=== PATIENT | male | born 1970 | race Caucasian/White ===

== ENCOUNTER 2024-08-05 10:17 | Inpatient (IN) | payer OTHER, SELFPAY ==
--- NOTE | ~2024-08-05 | XR_ITS ---
CLINICAL HISTORY: fever, cough Single view of the chest. Findings: Heart size is upper limits of normal. There is no consolidation. No pleural effusions are seen. Median sternotomy. There is mild elevation of the right hemidiaphragm. Impression: No consolidation. This document has been electronically signed by: Dmitri Hazel MD on 08/07/2024 17:15:01
[2024-08-05 10:23] VITALS: BP 167/92; PULSE 111; RESP 18; TEMP 36.6; O2SAT 100; BMI 32.6
[2024-08-05 10:54] LABS: MANUAL DIFF FLAG NO
--- NOTE | 2024-08-05 10:58 | ED_ITS ---
HPI - GI Bleed General Chief complaint: GI Bleed Stated complaint: GI bleed on coumadin Time Seen by Provider: 08/05/24 10:57 Source: patient Mode of arrival: ambulatory Limitations: no limitations History of Present Illness ED Provider: Nicanor Snell DO HPI Narrative: 54-year-old male with past medical history of aortic valve replacement in 2012 currently on warfarin and alcohol use regularly described as approximately 1-2 bottles of wine daily with no history of withdrawal seizures or delirium tremens presents to the emergency department for 3 days of black tarry stools. Patient states he has had upper GI bleed x2 since he has been on warfarin, 1 episode requiring cauterization by Gastroenterology at [facility] in 2014 due to a duodenal ulcer. He states he has not had severe withdrawals requiring admission but does feel he is withdrawing now as his last drink was last night. He held his warfarin starting 2 days ago secondary to the bleeding. The episodes have been occurring persistently, proximally 6 or 7 per day. He denies bright red blood per rectum or any other areas of bleeding. She denies chest pain. He does feel mildly short of breath and weak. He denies NSAID use. Patient reports that he does have a history of AV malformation. He denies variceal bleed history. Related Data Allergies Allergy/AdvReac Type Severity Reaction Status Date / Time No Known Allergies Allergy Verified 08/05/24 10:27 Review of Systems 2 Review of Systems: Yes all other systems are reviewed and are negative [facility] Social History Social History Advance Directives: Yes Advance Directives Information Provided: Yes Advance Directives on File: No Physical Exam 2 Vital Signs: Vital Signs: Last Vital Signs Temp 97.8 F 08/05/24 10:23 Pulse 111 H 08/05/24 10:23 Resp 18 08/05/24 10:23 BP 167/92 H 08/05/24 10:23 Pulse Ox 100 08/05/24 10:23 O2 Del Method Room Air 08/05/24 10:23 BMI result Body Mass Index 32.6 Constitutional: ?Alert, oriented, speaking in full sentences, exhibiting mild tremors HEENT: ?Normocephalic, atraumatic. ?Moist mucous membranes Eyes: ?PERRL, EOMI Neck: ?Supple, nontender Chest: ?No chest wall tenderness Respiratory: ?Lungs clear to auscultation, no increased work of breathing Cardio: ?Regular rate and rhythm, machine like murmur, 2+ radial and DP pulses symmetrically GI: ?Soft, mildly distended, no appreciable fluid wave, nontender, deferred rectal exam Back: ?Normal range of motion, nontender Skin: ?No rash, no lesions Neuro: ?Alert and oriented to person, place and time, moves all 4 extremities, no focal deficits Extremities: ?No swelling or tenderness, full range of motion Psych: ?Calm, alert and cooperative, appropriate behavior Medical Decision Making Medical Decision Making [facility] Narrative: Patient presenting with history concerning for upper GI bleed. Likely in the setting of warfarin and history of AV malformation. He is not actively hemorrhaging. He has tachycardia but no other concerning vital sign abnormalities and is mentating well. Because he deferred the rectal exam I discussed evaluating his stool during the next episode. Ordered for 80 mg pantoprazole IV. Also ordered CIWA orders as the patient does appear to be actively in withdrawal. Differential for etiology of bleed includes recurrent duodenal or peptic ulcer, less likely variceal bleed, less likely lower bleed including diverticulitis. Labs returned with a critical value of INR, supratherapeutic to 7.7. Ordered for vitamin K. patient does not require PCC at this time in my estimation. Otherwise labs show hemoglobin of 10.8 with no previous, platelets of 200, elevated BUN to creatinine ratio of 25:0.79, negative ethanol level. Patient out to GI at 11:30 for recommendations for management. Histology Tech on-call agrees with plan, evaluated the patient at the bedside, recommends liquid diet and will likely scope in a couple of days when INR reduces to appropriate level. Case discussed with hospitalist who agrees with plan. Admission/Observation Consideration of admission/observation: Escalation of care including admission/observation considered Lab Data [facility] Lab Attestation statement: I reviewed the patient's lab results. 08/05/24 10:50 08/05/24 10:50 Labs: Lab Results 08/05/24 Range/Units 10:50 WBC 8.0 (4.8-10.8) X10*3/uL RBC 3.22 L (4.60-5.80) X10*6/uL Hgb 10.8 L (14.0-18.0) g/dl Hct 31.2 L (42.0-52.0) % MCV 96.9 (80.0-98.0) fL MCH 33.5 H (27.0-33.0) pg MCHC 34.6 (31.0-36.0) g/dl RDW 13.2 (11.0-16.0) % Plt Count 200 (160-400) X10*3/uL MPV 10.1 (9.4-12.4) fL Immature Gran % (Auto) 0.5 H (0.0-0.4) % Neut % (Auto) 74.3 H (45-73) % Lymph % (Auto) 15.5 L (20-40) % [place] % (Auto) 8.1 (2-11) % Eos % (Auto) 1.0 (0-4) % Baso % (Auto) 0.6 (0-2) % Lymph # (Auto) 1.2 (1.2-4.9) X10*3/uL [place] # (Auto) 0.6 (0.1-1.2) X10*3/uL Eos # (Auto) 0.1 (0.0-0.4) X10*3/uL Baso # (Auto) 0.1 (0.0-0.2) X10*3/uL Abs Immat Gran (auto) 0.04 H (0.00-0.03) X10*3/uL Absolute Neuts (auto) 5.9 (2.0-8.3) x10*3/uL Absolute Nucleated RBC 0.000 (0.0-0.012) X10*3/uL Nucleated RBC % (auto) 0.0 (0.0-0.2) /100WBC PT 89.7 H (10.9-12.4) SEC INR 7.7 H* (0.9-1.1) Hold Blue Top SEE NOTE Sodium 140 (135-145) mmol/L Potassium 4.6 (3.3-5.1) mmol/L Chloride 103 (96-108) mmol/L Carbon Dioxide 26 (22-29) mmol/L Anion Gap 16 (12-20) BUN 25 H (9-16) mg/dL Creatinine 0.79 (0.5-1.4) mg/dL Estim Creat Clear Calc 114.2 Estimated GFR > 60 Random Glucose 170 H (60-115) mg/dL Calcium 8.7 (8.4-10.2) mg/dL Magnesium 1.8 (1.6-2.6) mg/dL Total Bilirubin 0.4 (0.0-1.0) mg/dL AST 35 (5-37) U/L ALT 53 H (0-40) U/L Alkaline Phosphatase 51 (39-117) U/L Total Protein 7.2 (6.5-8.0) g/dL Albumin 4.1 (3.5-5.0) g/dL Ethyl Alcohol < 10 mg/dL Influenza Type A (PCR) NEGATIVE (Negative) Influenza Type B (PCR) NEGATIVE (Negative) RSV RNA Qual (PCR) NEGATIVE (Negative) SARS-CoV-2 RNA (RT-PCR) NEGATIVE (Negative) Discharge Plan Discharge Clinical Impression: Upper gastrointestinal hemorrhage Alcohol withdrawal Qualifiers: Complication of substance-induced condition: uncomplicated Qualified Code(s): F 10.930 - Alcohol use, unspecified with withdrawal, uncomplicated Patient Disposition: Admitted As Inpatient Print Language: Serbian
[2024-08-05 10:59] LABS: Basophils Absolute Auto 0.1 X10*3/uL (0.0-0.2); Basophils Percent Auto 0.6 % (0-2); Eosinophils Absolute Auto 0.1 X10*3/uL (0.0-0.4); Hematocrit 31.2 % (42.0-52.0); Hemoglobin 10.8 g/dl (14.0-18.0); Imm Gran Abs Auto 0.04 X10*3/uL (0.00-0.03); Imm Gran Pct Auto 0.5 % (0.0-0.4); Lymphocytes Absolute Auto 1.2 X10*3/uL (1.2-4.9); Lymphocytes Percent Auto 15.5 % (20-40); Mean Corpuscular HGB Conc 34.6 g/dl (31.0-36.0); Mean Corpuscular Hemoglobin 33.5 pg (27.0-33.0); Mean Corpuscular Volume 96.9 fL (80.0-98.0); Mean Platelet Volume 10.1 fL (9.4-12.4); Monocytes Absolute Auto 0.6 X10*3/uL (0.1-1.2); Monocytes Percent Auto 8.1 % (2-11); Neutrophils Absolute Auto 5.9 x10*3/uL (2.0-8.3); Neutrophils Percent Auto 74.3 % (45-73); Platelet Count 200 X10*3/uL (160-400); Red Blood Count 3.22 X10*6/uL (4.60-5.80); Red Cell Distribution Width 13.2 % (11.0-16.0)
[2024-08-05 11:12] LABS: Alanine Aminotransferase 53 U/L (0-40); Albumin Level 4.1 g/dL (3.5-5.0); Alkaline Phosphatase 51 U/L (39-117); Anion Gap 16 (12-20); Aspartate Amino Transferase 35 U/L (5-37); Bilirubin Total 0.4 mg/dL (0.0-1.0); Blood Urea Nitrogen 25 mg/dL (9-16); Calcium 8.7 mg/dL (8.4-10.2); Carbon Dioxide 26 mmol/L (22-29); Chloride 103 mmol/L (96-108); Creatinine Clr Calc Pharmacy 114.2; Estimated Glomerular Filt Rate > 60; Glucose Random 170 mg/dL (60-115); Magnesium 1.8 mg/dL (1.6-2.6); Potassium 4.6 mmol/L (3.3-5.1); Sodium 140 mmol/L (135-145); Total Protein 7.2 g/dL (6.5-8.0)
[2024-08-05 11:17] LABS: Ethanol < 10 mg/dL
[2024-08-05 11:19] LABS: Prothrombin Time 89.7 SEC (10.9-12.4)
[2024-08-05 11:21] LABS: INTERNATIONAL NORM RATIO 7.7 (0.9-1.1)
[2024-08-05 11:55] LABS: Influenza A PCR NEGATIVE (Negative); Influenza B PCR NEGATIVE (Negative); Resp Syncy Virus RNA Qual PCR NEGATIVE (Negative); SARS COV2 PCR INHOUSE NEGATIVE (Negative)
--- NOTE | 2024-08-05 12:08 | P.HPHOSP_ITS ---
History of Present Illness Date of Service: 08/05/24 Attending physician on admission: Leon Youssef Chief Complaint: Melena Pt is a 54-year-old male with a PMH significant for mechanical aortic valve replacement? in 2013 on warfarin, endocarditis, hx of GI bleed x3, prior cauterization duodenal ulcer, AV malformation, and alcohol use disorder at [facility] who presents to the ED with black and tarry stools x3 days. Pt reports weakness and chills, but no lightheadedness or dizziness. Denies hemoptysis, hematemesis, hematochezia. No abd pain or vomiting. Pt on Coumadin which he reports has been compliant with and follows with [facility] INR clinic. Held Coumadin yesterday. Long hx of daily alcohol use of 1-2 bottles of wine, reports has been drinking 2.5+ bottles daily due to being on vacation. Reports mild tremors, diaphoresis, increased anxiety, nausea, photophobia and phonophobia. No vomiting or headache. No tactile disturbances. Aortic valve replacement secondary to hx of bicuspid aortic valve complicated by endocarditis from bacteremia of unknown source. In the ED pt was tachycardic up to 111 and hypertensive up to 167/92. Labs were significant for H&H 10.8/31.2, Pt 89.7, INR 7.7, and ALT 53. No leukocytosis. No significant electrolyte abnormalities. Renal function baseline. Tested negative for flu, RSV, and COVID. Pt was treated with Pantoprazole 80 mg IV and phytonadione. Pt will be admitted to the hospital for treatment and further evaluation of melena concerning for GI bleed as well as acute alcohol withdrawal. Review of Systems 2 Review of Systems: Negative except for that which is stated in the HPI. [facility] Medical History AV malformation of gastrointestinal tract Endocarditis Alcohol use disorder Surgical History Aortic valve replaced Social History Advance Directives: Yes Advance Directives Information Provided: Yes Advance Directives on File: No Meds Allergies Allergy/AdvReac Type Severity Reaction Status Date / Time No Known Allergies Allergy Verified 08/05/24 10:27 Active Medications: Current Medications Phytonadione 10 mg/ Sodium (Chloride) 51 mls @ 51 mls/hr IV ONCE ONE Stop: 08/05/24 12:23 Physical Exam 2 Vital Signs and Narrative: Vital Signs: Last Vital Signs Temp 97.8 F 08/05/24 10:23 Pulse 111 H 08/05/24 10:23 Resp 18 08/05/24 10:23 BP 167/92 H 08/05/24 10:23 Pulse Ox 100 08/05/24 10:23 O2 Del Method Room Air 08/05/24 10:23 BMI result Body Mass Index 32.6 General: AOx3, no acute distress Resp: CTA bilaterally CVS: S1, S2, RRR GI: +BS, NT, no distention Skin: Warm, dry Neuro: Cranial nerves II-XII grossly intact bilaterally. Motor grossly intact bilaterally. Mild upper extremity tremors noted. No tongue fasiculations. Extremities: No edema Psych: Appropriate affect Results Labs 08/05/24 10:50 08/05/24 10:50 Labs: Laboratory Results - last 24 hr 08/05/24 10:50 MCV 96.9 MCH 33.5 H MCHC 34.6 RDW 13.2 Plt Count 200 MPV 10.1 Immature Gran % (Auto) 0.5 H Neut % (Auto) 74.3 H Lymph % (Auto) 15.5 L [place] % (Auto) 8.1 Eos % (Auto) 1.0 Baso % (Auto) 0.6 Lymph # (Auto) 1.2 [place] # (Auto) 0.6 Eos # (Auto) 0.1 Baso # (Auto) 0.1 Abs Immat Gran (auto) 0.04 H Absolute Neuts (auto) 5.9 Absolute Nucleated RBC 0.000 Nucleated RBC % (auto) 0.0 PT 89.7 H INR 7.7 H* Hold Blue Top SEE NOTE Anion Gap 16 Estim Creat Clear Calc 114.2 Estimated GFR > 60 Random Glucose 170 H Calcium 8.7 Magnesium 1.8 Total Bilirubin 0.4 AST 35 ALT 53 H Alkaline Phosphatase 51 Total Protein 7.2 Albumin 4.1 Ethyl Alcohol < 10 Influenza Type A (PCR) NEGATIVE Influenza Type B (PCR) NEGATIVE RSV RNA Qual (PCR) NEGATIVE SARS-CoV-2 RNA (RT-PCR) NEGATIVE Assessment and Plan (1) Melena: Status: Acute (2) Alcohol withdrawal: Qualifiers: Complication of substance-induced condition: uncomplicated Qualified Code(s): F10.930 - Alcohol use, unspecified with withdrawal, uncomplicated Status: Acute Plan Pt is a 54-year-old male with a PMH significant for mechanical aortic valve replacement? in 2013 on warfarin, endocarditis, hx of GI bleed x3, prior cauterization duodenal ulcer, AV malformation, and alcohol use disorder at [facility] who presents to the ED with black and tarry stools x3 days. Pt will be admitted to the hospital for treatment and further evaluation of melena concerning for GI bleed as well as acute alcohol withdrawal. Melena with supratherapeutic INR x3 days, held warfarin yesterday Weakness and chills, no lightheadness or dizziness Currently no active bleeding noted INR 7.7 Pt given vitamin K and Protonix 80mg IV, has been typed and screened in ED Will treat with Protonix 40mg IV bid Hold warfarin Monitor INR Clear liquid diet for now GI consult for likely EGD once INR stabalized Follow H&H Acute alcohol withdrawal Long hx of daily drinking 1-2 bottles Drinking 2.5+ bottles of wine daily for past week while on vacation Currently as minor tremors, diaphoresis, increased anxiety, anxious, phonophobia, and photophobia Will start phenobarb protocol Folic acid, thiamine, daily multivitamin Addiction medicine consult Monitor on telemetry Mood disorder Continue lamotrigine Full Code Attending:?Dr. Youssef DVT Prophylaxis: pneumatic compression due to concerns for GI bleed Pt will require a hospitalization of at least two nights for treatment of melena concerning for GI bleed in the setting supratherapeutic INR, as well as acute alcohol withdrawal.? pt will require hospital level care for administration of phenobarb protocol, as well as close monitoring of INR and H&H, and specialist consultation with GI with likely inpatient EGD. Quality Stroke Does the patient have a stroke diagnosis?: No VTE Prior VTE?: No VTE Risk Level:: Medical - moderate - high VTE Device Contraindication: N/A - Device Ordered VTE Drug Contraindication: Treatment Not Indicated
[2024-08-05] MEDS: Phytonadione (Vit K1) 10 MG in 0.9 % Sodium Chloride 50 ML 51 MG IV (13:01)
[2024-08-05] MEDS: Pantoprazole Sodium 40 MG/10 ML VIAL 80 MG IVPUSH (13:01)
--- NOTE | 2024-08-05 13:36 | P.CNGI_ITS ---
History of Present Illness Data of Consult Service Date: 08/05/24 Primary Care Provider: RADHA De Luna HPI Reason for consult: melena 54-year-old male with a hx of mechanical aortic valve replacement? in 2013 on warfarin, endocarditis, hx of GI bleed x3, prior cauterization duodenal ulcer, AV malformation, and alcohol use disorder who I am seeing for assessment for melena Patient noted 3 d of melenic stools with sob on exertion but no chest pain, no abdominal pain. denies hemoptysis, hematemesis, hematochezia. He has been drinking heavily for years, at least 2 bottles of wine daily but recently increased to 3 bottles as he was on holiday. he acknowledges he has an issue with alcohol and wants help. denies taking other drugs or nsaids His INR was 7.7 on admission and he was given vit K Review of Systems 2 Review of Systems: Constitutional : No Weight loss, No Fever, No Chills ENT/Mouth : No sore throat, No Rhinorrhea Eyes: No Swelling, No Redness Cardiovascular : No Chest Pain, + SOB, No Edema Respiratory : No Cough, No Sputum, No Wheezing Gastrointestinal : see HPI Genitourinary : NO Dysuria, No Urinary Frequency, No Hematuria, No Urgency Musculoskeletal : no joint pain, No Myalgias, No Joint Swelling Skin : No Skin Lesions, No rash Neuro : No Weakness, No Numbness, No Dizziness, No Headache Psych : No Anxiety/Panic, No Depression Heme/Lymph: No Bruising, No Lymphadenopathy Endocrine : No Polyuria, No Polydipsia All other systems reviewed and are negative. [facility] Past Medical History Medical History AV malformation of gastrointestinal tract Endocarditis Alcohol use disorder Family History Pertinent family history: aunt with crc Surgical History Surgical History Aortic valve replaced Social History Social History Advance Directives: Yes Advance Directives Information Provided: Yes Advance Directives on File: No Meds Allergies Allergy/AdvReac Type Severity Reaction Status Date / Time No Known Allergies Allergy Verified 08/05/24 10:27 Active Medications: Current Medications Acetaminophen (Acetaminophen 325 Mg Tablet) 650 mg PO Q6H PRN PRN Reason: Pain, Mild 1-3,fever,headache Calcium Carbonate (Calcium Carbonate 750 Mg Tab.Chew) 750 mg PO Q4H PRN PRN Reason: Heartburn Folic Acid (Folic Acid 1 Mg Tablet) 1 mg PO DAILY [facility] Stop: 08/08/24 13:29 Magnesium Hydroxide (Milk Of Magnesia 30 Ml Oral.Susp) 30 ml PO DAILY PRN PRN Reason: Constipation Melatonin (Melatonin 3 Mg Tablet) 6 mg PO BEDTIME PRN PRN Reason: Insomnia Multivitamins/Vitamin C (Multivitamin Tablet) 1 tab PO DAILY [facility] Stop: 08/08/24 13:29 Ondansetron HCl (Ondansetron Hcl 4 Mg/2 Ml Vial) 4 mg IVPUSH Q8H PRN PRN Reason: Nausea and Vomiting Pantoprazole Sodium (Pantoprazole Sodium 40 Mg/10 Ml Vial) 40 mg IVPUSH BID@0630,1630 [facility] Pharmacy Consult (Consult Rx Etoh Phenob Im/Po) 1 each MISCELLANE ONCE PRN; Protocol PRN Reason: Consult order Phenobarbital (Phenobarbital 15 Mg Tablet) 45 mg PO BID [facility] Stop: 08/07/24 21:01 Phenobarbital (Phenobarbital 15 Mg Tablet) 15 mg PO BID [facility] Stop: 08/09/24 21:01 Phenobarbital (Phenobarbital 15 Mg Tablet) 15 mg PO DAILY [facility] Stop: 08/11/24 09:01 Phenobarbital Sodium (Phenobarbital Sodium 130 Mg/Ml Vial Im Q3hx2) 160 mg IM Q3H [facility] Stop: 08/05/24 17:01 Sodium Chloride (0.9 % Sodium Chloride Flush 3 Ml Syringe) 3 ml IVFLUSH QSHIFT [facility] Thiamine HCl (Thiamine Hcl 100 Mg Tablet) 100 mg PO DAILY [facility] Stop: 08/08/24 13:29 Physical Exam 2 Vital Signs: Vital Signs: Last Vital Signs Temp 97.8 F 08/05/24 10:23 Pulse 111 H 08/05/24 10:23 Resp 18 08/05/24 10:23 BP 167/92 H 08/05/24 10:23 Pulse Ox 100 08/05/24 10:23 O2 Del Method Room Air 08/05/24 10:23 BMI result Body Mass Index 32.6 EXAM: GENERAL: The patient is well developed and nontoxic. VITAL SIGNS:see workflow HEENT: Nonicteric sclerae, PERRLA, EOMI. Oropharynx clear. Moist mucous membranes. Conjunctivae appear well perfused. No thyroid mass. CHEST: Chest wall is nontender. HEART: Regular rate and rhythm without murmurs. metallic S2 LUNGS: Clear to auscultation bilaterally. ABDOMEN: Soft, positive bowel sounds, nontender, no organomegaly.no flank tenderness SKIN: No rash, no excessive bruising, petechiae, or purpura. NEUROLOGIC: Cranial nerves II-XII intact without motor/sensory deficit. tremulous Psych: normal affect Results Labs 08/05/24 10:50 08/05/24 10:50 Labs: Short CBC 08/05/24 Range/Units 10:50 WBC 8.0 (4.8-10.8) X10*3/uL Hgb 10.8 L (14.0-18.0) g/dl Hct 31.2 L (42.0-52.0) % Plt Count 200 (160-400) X10*3/uL BMP 08/05/24 10:50 Sodium 140 Potassium 4.6 Chloride 103 Carbon Dioxide 26 BUN 25 H Creatinine 0.79 Calcium 8.7 Liver Function 08/05/24 Range/Units 10:50 Total Bilirubin 0.4 (0.0-1.0) mg/dL AST 35 (5-37) U/L ALT 53 H (0-40) U/L Alkaline Phosphatase 51 (39-117) U/L Albumin 4.1 (3.5-5.0) g/dL Assessment and Plan (1) Melena: Status: Acute Plan 1/ Acute blood loss anemia in setting of supratherapeutic INR and xs alcohol use. He may have alcoholic gastritis, erosive gastritis, esophagitis, PUD or AVM. He appears stable but may be going thru early withdrawal from alcohol PLAN: 1/ Agree with BID high dose PPI 2/ Multivitamin and CIWA, 3/ allow clears 4/ EGD to be determined based on clinical course, would appreciate INR around 1.5-2 range Procedures Date of Service Date of Service: 08/05/24
[2024-08-05] MEDS: PHENobarbitaL sodium 130 MG/ML IM ONCE 212 MG IM (14:02)
[2024-08-05] MEDS: Folic Acid 1 MG TABLET PO (14:03)
[2024-08-05] MEDS: Multivitamin TABLET 1 TAB PO (14:03)
[2024-08-05] MEDS: Thiamine HCL 100 MG TABLET PO (14:03)
[2024-08-05] MEDS: lamoTRIgine 100 MG TABLET 200 MG PO (14:03)
--- NOTE | 2024-08-05 15:30 | PHA.MEDREC ---
Addendum entered by Kim Landeros rhoda 08/05/24 15:59: reviewed by pharmacist Original Note: Pharmacy Consult ? Medication Reconciliation Pharmacy has completed the medication reconciliation. Spoke with patient to confirm medications. He reports 5 mg of warfarin daily, last had day before yesterday.
[2024-08-05] MEDS: PHENobarbitaL sodium 130 MG/ML VIAL IM Q3Hx2 160 MG IM ×2 (15:46→20:25)
[2024-08-05] MEDS: 0.9 % Sodium Chloride Flush 3 ML SYRINGE IVFLUSH (17:48)
[2024-08-05] MEDS: Pantoprazole Sodium 40 MG/10 ML VIAL IVPUSH (17:48)
[2024-08-05 17:49] VITALS: BP 165/90; PULSE 99; RESP 14; TEMP 37.4; O2SAT 97
[2024-08-05 19:20] VITALS: BP 153/85; PULSE 100; RESP 15; TEMP 37.1; O2SAT 97
[2024-08-06] VITALS (8 sets, daily range): BP systolic 119–143; BP diastolic 65–80; PULSE 88–115; RESP 12–20; TEMP 36.7–37.2; O2SAT 93–98
[2024-08-06] MEDS: Melatonin 3 MG TABLET 6 MG PO ×2 (00:58→23:29)
[2024-08-06 05:17] LABS: Anion Gap 12 (12-20); Blood Urea Nitrogen 20 mg/dL (9-16); Calcium 8.5 mg/dL (8.4-10.2); Carbon Dioxide 26 mmol/L (22-29); Chloride 106 mmol/L (96-108); Creatinine Clr Calc Pharmacy 121.9; Estimated Glomerular Filt Rate > 60; Glucose Random 125 mg/dL (60-115); Potassium 3.8 mmol/L (3.3-5.1); Sodium 140 mmol/L (135-145)
[2024-08-06 05:21] LABS: INTERNATIONAL NORM RATIO 1.4 (0.9-1.1); Prothrombin Time 16.4 SEC (10.9-12.4)
--- NOTE | 2024-08-06 08:28 | P.PNIM_ITS ---
Subjective Subjective Date of Service: 08/06/24 Interval History: Still with melena, withdrawal symptoms Physical Exam 2 Vital Signs: Vital Signs: Last Vital Signs Temp 98.5 F 08/06/24 04:00 Pulse 94 08/06/24 04:00 Resp 12 08/06/24 04:00 BP 143/80 H 08/06/24 04:00 Pulse Ox 94 08/06/24 04:00 O2 Del Method Room Air 08/06/24 04:00 BMI result Body Mass Index 32.6 General: AO X 3, no acute distress Resp: CTA bilateral, no accessory muscles used CVS: S1,S2,RRR GI: soft, non tender, non distended Neuro: motor grossly intact, alert, tremulous Psych: appropriate affect, appropriate insight Objective Data Active Medications Acetaminophen (Acetaminophen 325 Mg Tablet) 650 mg PO Q6H PRN PRN Reason: Pain, Mild 1-3,fever,headache Calcium Carbonate (Calcium Carbonate 750 Mg Tab.Chew) 750 mg PO Q4H PRN PRN Reason: Heartburn Ferrous Sulfate (Ferrous Sulfate 324 Mg Tablet.Dr) 324 mg PO DAILY [facility] Folic Acid (Folic Acid 1 Mg Tablet) 1 mg PO DAILY [facility] Stop: 08/08/24 13:29 Last Admin: 08/05/24 14:03 Dose: 1 mg Documented By: KAY Lamotrigine (Lamotrigine 100 Mg Tablet) 200 mg PO DAILY [facility] Loratadine (Loratadine 10 Mg Tablet) 10 mg PO DAILY [facility] Magnesium Hydroxide (Milk Of Magnesia 30 Ml Oral.Susp) 30 ml PO DAILY PRN PRN Reason: Constipation Melatonin (Melatonin 3 Mg Tablet) 6 mg PO BEDTIME PRN PRN Reason: Insomnia Last Admin: 08/06/24 00:58 Dose: 6 mg Documented By: LINNETTE Multivitamins/Vitamin C (Multivitamin Tablet) 1 tab PO DAILY [facility] Stop: 08/08/24 13:29 Last Admin: 08/05/24 14:03 Dose: 1 tab Documented By: KAY Ondansetron HCl (Ondansetron Hcl 4 Mg/2 Ml Vial) 4 mg IVPUSH Q8H PRN PRN Reason: Nausea and Vomiting Pantoprazole Sodium (Pantoprazole Sodium 40 Mg/10 Ml Vial) 40 mg IVPUSH BID@0630,1630 [facility] Last Admin: 08/05/24 17:48 Dose: 40 mg Documented By: KAY Pharmacy Consult (Consult Rx Etoh Phenob Im/Po) 1 each MISCELLANE ONCE PRN; Protocol PRN Reason: Consult order Phenobarbital (Phenobarbital 15 Mg Tablet) 45 mg PO BID [facility] Stop: 08/07/24 21:01 Phenobarbital (Phenobarbital 15 Mg Tablet) 15 mg PO BID [facility] Stop: 08/09/24 21:01 Phenobarbital (Phenobarbital 15 Mg Tablet) 15 mg PO DAILY [facility] Stop: 08/11/24 09:01 Sodium Chloride (0.9 % Sodium Chloride Flush 3 Ml Syringe) 3 ml IVFLUSH QSHIFT [facility] Last Admin: 08/06/24 01:21 Dose: Not Given Documented By: LINNETTE Non-Admin Reason: 10ml flush used Thiamine HCl (Thiamine Hcl 100 Mg Tablet) 100 mg PO DAILY [facility] Stop: 08/08/24 13:29 Last Admin: 08/05/24 14:03 Dose: 100 mg Documented By: KAY Labs 08/05/24 10:50 08/06/24 04:58 Labs: Laboratory Results - last 24 hr 08/05/24 08/05/24 08/06/24 10:50 12:42 04:58 MCV 96.9 MCH 33.5 H MCHC 34.6 RDW 13.2 Plt Count 200 MPV 10.1 Immature Gran % (Auto) 0.5 H Neut % (Auto) 74.3 H Lymph % (Auto) 15.5 L [place] % (Auto) 8.1 Eos % (Auto) 1.0 Baso % (Auto) 0.6 Lymph # (Auto) 1.2 [place] # (Auto) 0.6 Eos # (Auto) 0.1 Baso # (Auto) 0.1 Abs Immat Gran (auto) 0.04 H Absolute Neuts (auto) 5.9 Absolute Nucleated RBC 0.000 Nucleated RBC % (auto) 0.0 PT 89.7 H 16.4 H D INR 7.7 H* 1.4 H D Hold Blue Top SEE NOTE Anion Gap 16 12 Estim Creat Clear Calc 114.2 121.9 Estimated GFR > 60 > 60 Random Glucose 170 H 125 H Calcium 8.7 8.5 Magnesium 1.8 Total Bilirubin 0.4 AST 35 ALT 53 H Alkaline Phosphatase 51 Total Protein 7.2 Albumin 4.1 Hold Red Top See Note Ethyl Alcohol < 10 Influenza Type A (PCR) NEGATIVE Influenza Type B (PCR) NEGATIVE RSV RNA Qual (PCR) NEGATIVE SARS-CoV-2 RNA (RT-PCR) NEGATIVE Blood Type O Negative Antibody Screen NEGATIVE Assessment and Plan (1) Alcohol withdrawal: Status: Acute Plan 54M PMH bicuspid aortic valve status post mechanical aortic valve replacement 2012 on warfarin, history of endocarditis, mood disorder, history of duodenal ulcer and AV malformation, alcohol dependence presented with melena Acute blood loss anemia Due to GI bleed and patient with supratherapeutic INR Warfarin reversed, INR decreased from 7.7 down to 1.4 Continue to hold warfarin for now Continue IV ppi, follow up CBC, clear liquids, GI following for possible EGD Alcohol dependence with withdrawal Phenobarbital protocol, CIWA History of mechanical aortic valve We will restart anticoagulation once bleeding stops Mood disorder On lamotrigine DVT prophylaxis-mechanical due to melena Full code reason for continued hospitalization: Active withdrawal, working up GI bleed Quality Stroke Does the patient have a stroke diagnosis?: No VTE Prior VTE?: No VTE Risk Level:: Medical - moderate - high VTE Device Contraindication: N/A - Device Ordered VTE Drug Contraindication: Treatment Not Indicated
[2024-08-06] MEDS: 0.9 % Sodium Chloride Flush 3 ML SYRINGE IVFLUSH ×3 (09:26→23:31)
[2024-08-06] MEDS: Multivitamin TABLET 1 TAB PO (09:28)
[2024-08-06] MEDS: lamoTRIgine 100 MG TABLET 200 MG PO (09:28)
[2024-08-06] MEDS: Folic Acid 1 MG TABLET PO (09:28)
[2024-08-06] MEDS: Loratadine 10 MG TABLET PO (09:29)
[2024-08-06] MEDS: Thiamine HCL 100 MG TABLET PO (09:29)
[2024-08-06] MEDS: Ferrous Sulfate 324 MG TABLET.DR PO (09:29)
[2024-08-06] MEDS: PHENobarbitaL 15 MG TABLET 45 MG PO ×2 (09:29→23:30)
[2024-08-06] MEDS: Pantoprazole Sodium 40 MG/10 ML VIAL IVPUSH ×2 (09:29→18:41)
[2024-08-06 10:23] LABS: Hematocrit 26.4 % (42.0-52.0); Hemoglobin 8.8 g/dl (14.0-18.0); Mean Corpuscular HGB Conc 33.3 g/dl (31.0-36.0); Mean Corpuscular Hemoglobin 33.5 pg (27.0-33.0); Mean Corpuscular Volume 100.4 fL (80.0-98.0); Mean Platelet Volume 10.2 fL (9.4-12.4); NRBC Pct Auto 0.3 /100WBC (0.0-0.2); Red Blood Count 2.63 X10*6/uL (4.60-5.80); Red Cell Distribution Width 13.1 % (11.0-16.0); White Blood Count 5.8 X10*3/uL (4.8-10.8)
[2024-08-06 10:28] LABS: Platelet Count 141 X10*3/uL (160-400)
--- NOTE | 2024-08-06 13:38 | P.PNGI_ITS ---
Subjective Subjective Date of Service: 08/06/24 Interval History: Still having melena no abdominal pain hemodynamics are good INR came down seems more relaxed Critical Care Time (minutes): 0 Physical Exam 2 Vital Signs: Vital Signs: Last Vital Signs Temp 98.6 F 08/06/24 09:19 Pulse 93 08/06/24 12:20 Resp 14 08/06/24 12:20 BP 130/76 08/06/24 12:20 Pulse Ox 96 08/06/24 12:20 O2 Del Method Room Air 08/06/24 12:20 BMI result Body Mass Index 32.6 EXAM: GENERAL: The patient is well developed and nontoxic. VITAL SIGNS:see workflow HEENT: Nonicteric sclerae, PERRLA, EOMI. Oropharynx clear. Moist mucous membranes. Conjunctivae appear well perfused. No thyroid mass. CHEST: Chest wall is nontender. HEART: Regular rate and rhythm without murmurs. LUNGS: Clear to auscultation bilaterally. ABDOMEN: Soft, positive bowel sounds, nontender, no organomegaly.no flank tenderness SKIN: No rash, no excessive bruising, petechiae, or purpura. NEUROLOGIC: Cranial nerves II-XII intact without motor/sensory deficit. Psych: normal affect Objective Data Labs 08/06/24 10:12 08/06/24 04:58 Labs: Laboratory Results - last 24 hr 08/05/24 08/06/24 08/06/24 12:42 04:58 10:12 WBC 5.8 RBC 2.63 L Hgb 8.8 L Hct 26.4 L MCV 100.4 H MCH 33.5 H MCHC 33.3 RDW 13.1 Plt Count 141 L D MPV 10.2 Absolute Nucleated RBC 0.020 H Nucleated RBC % (auto) 0.3 H PT 16.4 H D INR 1.4 H D Sodium 140 Potassium 3.8 Chloride 106 Carbon Dioxide 26 Anion Gap 12 BUN 20 H Creatinine 0.74 Estim Creat Clear Calc 121.9 Estimated GFR > 60 Random Glucose 125 H Calcium 8.5 Hold Red Top See Note Blood Type O Negative Antibody Screen NEGATIVE Procedures Date of Service Date of Service: 08/06/24 Progress Note: A&P Assessment and plan (1) Melena: Status: Acute Plan 1/ Melena - hemodynamics are stable, may have stopped, ddx: alcoholic gastritis, AVM, PUD in setting of supra-therapeutic INR PLAN: 1/ cont with PPI 2/ keep on clears 3/ possible EGD tomorrow pending OR schedule Time Spent With Patient Time: Total time managing care of this patient today ____ minutes. Quality Stroke Does the patient have a stroke diagnosis?: No VTE Prior VTE?: No VTE Risk Level:: Medical - moderate - high VTE Device Contraindication: N/A - Device Ordered VTE Drug Contraindication: Treatment Not Indicated
--- NOTE | 2024-08-06 15:03 | MHC.CM.PN ---
Patient reports SS of GIB: Melena+ Patient has a Mechanical heart valve. He takes Coumadin for AC therapy. He was recently on DANA. He reports that he drank wine. INR on admit 7.7 GI consult ordered. Plan is to scope once INR <2. DP home self care and self transport.
--- NOTE | 2024-08-06 21:22 | PC.NURSE ---
Pt educated on importance of bed alarm and hospital safety. Pt refusing to have staff ambulate him to bathroom despite concerns for safety. Pt also refusing to have bed alarm on. Pt A&Ox4.
[2024-08-07 03:36] VITALS: BP 104/55; PULSE 89; RESP 18; TEMP 36.6; O2SAT 93
[2024-08-07] MEDS: Pantoprazole Sodium 40 MG/10 ML VIAL IVPUSH ×2 (05:17→16:24)
[2024-08-07 07:04] LABS: Hematocrit 27.1 % (42.0-52.0); Mean Corpuscular HGB Conc 33.2 g/dl (31.0-36.0); Mean Corpuscular Hemoglobin 33.3 pg (27.0-33.0); Mean Corpuscular Volume 100.4 fL (80.0-98.0); Mean Platelet Volume 10.2 fL (9.4-12.4); NRBC Pct Auto 0.5 /100WBC (0.0-0.2); Platelet Count 141 X10*3/uL (160-400); Red Cell Distribution Width 13.1 % (11.0-16.0); White Blood Count 6.6 X10*3/uL (4.8-10.8)
[2024-08-07 07:09] LABS: INTERNATIONAL NORM RATIO 1.1 (0.9-1.1)
[2024-08-07 07:24] LABS: Anion Gap 9 (12-20); Blood Urea Nitrogen 11 mg/dL (9-16); Calcium 8.5 mg/dL (8.4-10.2); Carbon Dioxide 28 mmol/L (22-29); Chloride 106 mmol/L (96-108); Creatinine Clr Calc Pharmacy 121.9; Estimated Glomerular Filt Rate > 60; Glucose Random 118 mg/dL (60-115); Potassium 4.2 mmol/L (3.3-5.1); Sodium 139 mmol/L (135-145)
[2024-08-07 08:00] VITALS: BP 125/76; PULSE 93; RESP 20; TEMP 36.4; O2SAT 96
[2024-08-07] MEDS: Folic Acid 1 MG TABLET PO (09:46)
[2024-08-07] MEDS: PHENobarbitaL 15 MG TABLET 45 MG PO ×2 (09:46→21:53)
[2024-08-07] MEDS: Thiamine HCL 100 MG TABLET PO (09:47)
[2024-08-07] MEDS: Ferrous Sulfate 324 MG TABLET.DR PO (09:47)
[2024-08-07] MEDS: Loratadine 10 MG TABLET PO (09:47)
[2024-08-07] MEDS: Multivitamin TABLET 1 TAB PO (09:47)
[2024-08-07] MEDS: lamoTRIgine 100 MG TABLET 200 MG PO (09:47)
[2024-08-07] MEDS: 0.9 % Sodium Chloride Flush 3 ML SYRINGE IVFLUSH ×2 (09:48→16:25)
--- NOTE | 2024-08-07 10:14 | HO.PM.IMPN ---
Subjective Subjective Date of Service: 08/07/24 Interval History: still shaky Physical Exam Vital Signs: Vital Signs: Last Vital Signs Temp 97.6 F 08/07/24 08:00 Pulse 93 08/07/24 08:00 Resp 20 08/07/24 08:00 BP 125/76 08/07/24 08:00 Pulse Ox 96 08/07/24 08:00 O2 Del Method Room Air 08/07/24 08:00 BMI result Body Mass Index 32.6 General: AO X 3, no acute distress Resp: CTA bilateral, no accessory muscles used CVS: S1,S2,RRR GI: soft, non tender, non distended Neuro: motor grossly intact, alert, tremulous Psych: appropriate affect, appropriate insight Objective Data Active Medications Acetaminophen (Acetaminophen 325 Mg Tablet) 650 mg PO Q6H PRN PRN Reason: Pain, Mild 1-3,fever,headache Calcium Carbonate (Calcium Carbonate 750 Mg Tab.Chew) 750 mg PO Q4H PRN PRN Reason: Heartburn Ferrous Sulfate (Ferrous Sulfate 324 Mg Tablet.Dr) 324 mg PO DAILY [facility] Last Admin: 08/07/24 09:47 Dose: 324 mg Documented By: ORIANA Folic Acid (Folic Acid 1 Mg Tablet) 1 mg PO DAILY [facility] Stop: 08/08/24 13:29 Last Admin: 08/07/24 09:46 Dose: 1 mg Documented By: ORIANA Lamotrigine (Lamotrigine 100 Mg Tablet) 200 mg PO DAILY [facility] Last Admin: 08/07/24 09:47 Dose: 200 mg Documented By: ORIANA Loratadine (Loratadine 10 Mg Tablet) 10 mg PO DAILY [facility] Last Admin: 08/07/24 09:47 Dose: 10 mg Documented By: ORIANA Magnesium Hydroxide (Milk Of Magnesia 30 Ml Oral.Susp) 30 ml PO DAILY PRN PRN Reason: Constipation Melatonin (Melatonin 3 Mg Tablet) 6 mg PO BEDTIME PRN PRN Reason: Insomnia Last Admin: 08/06/24 23:29 Dose: 6 mg Documented By: QUINTIN Multivitamins/Vitamin C (Multivitamin Tablet) 1 tab PO DAILY [facility] Stop: 08/08/24 13:29 Last Admin: 08/07/24 09:47 Dose: 1 tab Documented By: ORIANA Ondansetron HCl (Ondansetron Hcl 4 Mg/2 Ml Vial) 4 mg IVPUSH Q8H PRN PRN Reason: Nausea and Vomiting Pantoprazole Sodium (Pantoprazole Sodium 40 Mg/10 Ml Vial) 40 mg IVPUSH BID@0630,1630 [facility] Last Admin: 08/07/24 05:17 Dose: 40 mg Documented By: QUINTIN Pharmacy Consult (Consult Rx Etoh Phenob Im/Po) 1 each MISCELLANE ONCE PRN; Protocol PRN Reason: Consult order Phenobarbital (Phenobarbital 15 Mg Tablet) 45 mg PO BID [facility] Stop: 08/07/24 21:01 Last Admin: 08/07/24 09:46 Dose: 45 mg Documented By: ORIANA Phenobarbital (Phenobarbital 15 Mg Tablet) 15 mg PO BID [facility] Stop: 08/09/24 21:01 Phenobarbital (Phenobarbital 15 Mg Tablet) 15 mg PO DAILY [facility] Stop: 08/11/24 09:01 Sodium Chloride (0.9 % Sodium Chloride Flush 3 Ml Syringe) 3 ml IVFLUSH QSHIFT [facility] Last Admin: 08/07/24 09:48 Dose: 3 ml Documented By: ORIANA Thiamine HCl (Thiamine Hcl 100 Mg Tablet) 100 mg PO DAILY [facility] Stop: 08/08/24 13:29 Last Admin: 08/07/24 09:47 Dose: 100 mg Documented By: ORIAAN Labs 08/07/24 06:50 08/07/24 06:50 Labs: Laboratory Results - last 24 hr 08/06/24 08/07/24 10:12 06:50 MCV 100.4 H 100.4 H MCH 33.5 H 33.3 H MCHC 33.3 33.2 RDW 13.1 13.1 Plt Count 141 L D 141 L MPV 10.2 10.2 Absolute Nucleated RBC 0.020 H 0.030 H Nucleated RBC % (auto) 0.3 H 0.5 H PT 13.0 H D INR 1.1 Anion Gap 9 L Estim Creat Clear Calc 121.9 Estimated GFR > 60 Random Glucose 118 H Calcium 8.5 Assessment and Plan (1) Alcohol withdrawal: Status: Acute Plan 54M PMH bicuspid aortic valve status post mechanical aortic valve replacement 2012 on warfarin, history of endocarditis, mood disorder, history of duodenal ulcer and AV malformation, alcohol dependence presented with melena Acute blood loss anemia Due to GI bleed and patient with supratherapeutic INR Warfarin reversed, INR decreased from 7.7 down to 1.4 Continue to hold warfarin for now Continue IV ppi, plan for egd 08/08/24 Alcohol dependence with withdrawal Phenobarbital protocol, CIWA History of mechanical aortic valve will restart anticoagulation once bleeding stops/egd Mood disorder On lamotrigine DVT prophylaxis-mechanical due to melena Full code reason for continued hospitalization: Active withdrawal, working up GI bleed Quality Stroke Does the patient have a stroke diagnosis?: No VTE Prior VTE?: No VTE Risk Level:: Medical - moderate - high VTE Device Contraindication: N/A - Device Ordered VTE Drug Contraindication: Treatment Not Indicated
[2024-08-07 12:00] VITALS: BP 136/78; PULSE 100; RESP 20; TEMP 37.2; O2SAT 96
--- NOTE | 2024-08-07 15:21 | MHC.CM.PN ---
Per rounds, pt is not ready to DC, he is scheduled to have a colonoscopy tomorrow. CM will follow for DC needs.
--- NOTE | 2024-08-07 15:22 | P.PNGI_ITS ---
Subjective Subjective Date of Service: 08/07/24 Interval History: stool is less black he is doing well no abdominal pain no nausea or vomiting Critical Care Time (minutes): 0 Physical Exam 2 Vital Signs: Vital Signs: Last Vital Signs Temp 98.9 F 08/07/24 12:00 Pulse 100 08/07/24 12:00 Resp 20 08/07/24 12:00 BP 136/78 08/07/24 12:00 Pulse Ox 96 08/07/24 12:00 O2 Del Method Room Air 08/07/24 12:00 BMI result Body Mass Index 32.6 EXAM: GENERAL: The patient is well developed and nontoxic. VITAL SIGNS:see workflow HEENT: Nonicteric sclerae, PERRLA, EOMI. Oropharynx clear. Moist mucous membranes. Conjunctivae appear well perfused. No thyroid mass. CHEST: Chest wall is nontender. HEART: Regular rate and rhythm without murmurs. LUNGS: Clear to auscultation bilaterally. ABDOMEN: Soft, positive bowel sounds, nontender, no organomegaly.no flank tenderness SKIN: No rash, no excessive bruising, petechiae, or purpura. NEUROLOGIC: Cranial nerves II-XII intact without motor/sensory deficit. Psych: normal affect Objective Data Labs 08/07/24 06:50 08/07/24 06:50 Labs: Laboratory Results - last 24 hr 08/07/24 06:50 WBC 6.6 RBC 2.70 L Hgb 9.0 L Hct 27.1 L MCV 100.4 H MCH 33.3 H MCHC 33.2 RDW 13.1 Plt Count 141 L MPV 10.2 Absolute Nucleated RBC 0.030 H Nucleated RBC % (auto) 0.5 H PT 13.0 H D INR 1.1 Sodium 139 Potassium 4.2 Chloride 106 Carbon Dioxide 28 Anion Gap 9 L BUN 11 Creatinine 0.74 Estim Creat Clear Calc 121.9 Estimated GFR > 60 Random Glucose 118 H Calcium 8.5 Procedures Date of Service Date of Service: 08/07/24 Progress Note: A&P Assessment and plan (1) Melena: Status: Acute Plan 1/ Melena, acute blood loss anemia, possibly from alcoholic gastritis in setting of raised INR, seems to have stabilized PLAN: 1/ can advance diet 2/ cont with PPI 3/ EGD tomorrow Time Spent With Patient Time: Total time managing care of this patient today ____ minutes. Quality Stroke Does the patient have a stroke diagnosis?: No VTE Prior VTE?: No VTE Risk Level:: Medical - moderate - high VTE Device Contraindication: N/A - Device Ordered VTE Drug Contraindication: Treatment Not Indicated
[2024-08-07 16:00] VITALS: BP 134/71; PULSE 94; RESP 20; TEMP 38; O2SAT 97
[2024-08-07 18:04] LABS: Influenza A PCR POSITIVE (Negative); Influenza B PCR NEGATIVE (Negative); Resp Syncy Virus RNA Qual PCR NEGATIVE (Negative); SARS COV2 PCR INHOUSE NEGATIVE (Negative)
[2024-08-07 19:52] VITALS: BP 129/63; PULSE 103; RESP 20; TEMP 37.4; O2SAT 94
[2024-08-07] MEDS: Melatonin 3 MG TABLET 6 MG PO (21:52)
[2024-08-07] MEDS: Oseltamivir Phosphate 75 MG CAPSULE PO (21:53)
[2024-08-07 23:16] VITALS: BP 131/65; PULSE 98; RESP 18; TEMP 37.6; O2SAT 93
[2024-08-08] VITALS (7 sets, daily range): BP systolic 117–155; BP diastolic 61–80; PULSE 80–96; RESP 16–21; TEMP 36.2–37.1; O2SAT 94–96
[2024-08-08] MEDS: 0.9 % Sodium Chloride Flush 3 ML SYRINGE IVFLUSH ×4 (03:30→20:39)
[2024-08-08] MEDS: Pantoprazole Sodium 40 MG/10 ML VIAL IVPUSH (06:33)
[2024-08-08 06:55] LABS: Hemoglobin 8.7 g/dl (14.0-18.0); Mean Corpuscular HGB Conc 33.5 g/dl (31.0-36.0); Mean Corpuscular Hemoglobin 33.6 pg (27.0-33.0); Mean Corpuscular Volume 100.4 fL (80.0-98.0); Mean Platelet Volume 10.2 fL (9.4-12.4); Platelet Count 151 X10*3/uL (160-400); Red Blood Count 2.59 X10*6/uL (4.60-5.80); Red Cell Distribution Width 13.5 % (11.0-16.0); White Blood Count 5.3 X10*3/uL (4.8-10.8)
[2024-08-08 07:00] LABS: NRBC Pct Auto 1.1 /100WBC (0.0-0.2)
[2024-08-08 07:15] LABS: Anion Gap 10 (12-20); Blood Urea Nitrogen 11 mg/dL (9-16); Calcium 8.7 mg/dL (8.4-10.2); Carbon Dioxide 28 mmol/L (22-29); Chloride 105 mmol/L (96-108); Creatinine Clr Calc Pharmacy 123.6; Estimated Glomerular Filt Rate > 60; Glucose Random 116 mg/dL (60-115); Magnesium 1.8 mg/dL (1.6-2.6); Potassium 3.9 mmol/L (3.3-5.1); Sodium 139 mmol/L (135-145)
[2024-08-08] MEDS: PHENobarbitaL 15 MG TABLET PO ×2 (09:01→20:39)
[2024-08-08] MEDS: Oseltamivir Phosphate 75 MG CAPSULE PO ×2 (09:01→20:39)
[2024-08-08] MEDS: Loratadine 10 MG TABLET PO (09:01)
[2024-08-08] MEDS: lamoTRIgine 100 MG TABLET 200 MG PO (09:02)
[2024-08-08] MEDS: Multivitamin TABLET 1 TAB PO (09:02)
[2024-08-08] MEDS: Ferrous Sulfate 324 MG TABLET.DR PO (09:02)
[2024-08-08] MEDS: Folic Acid 1 MG TABLET PO (09:02)
[2024-08-08] MEDS: Thiamine HCL 100 MG TABLET PO (09:02)
--- NOTE | 2024-08-08 10:55 | P.PNADD_ITS ---
Subjective Subjective Date of Service: 08/07/24 Reason For Visit: melena concern for GI bleed Interim History: Patient seen in followup for alcohol use disorder withdrawal and treatment Seen over the weekend by [facility] RN --trevor reviewed and discussed with patient He is awake, alert, pleasant and engaged in interview. Prior to admission, patient reported he has been drinking 1-2 bottles of wine daily for several years. Alcohol intake has fluctuated over the years, with one year of complete abstinence a few years ago. Denies any other substance use. Phenobarb taper nearing completion, and patient reporting withdrawal sx have resolved. Bright affect, future oriented CIWA scores 0 and 1's today. Discussed TRESSA, as he verbalized interest in restarting naltrexone. He reports he had previously been prescribed this medication, however he states he only took it for a month as he had persistent nausea with it. Denies any other side effects or medication trials. Currently awaiting EGD --being followed by GI Review of Systems Constitutional: Reports as per HPI and Reports no additional constitutional complaints Mental Status Exam Mental Status Exam Patient Appearance: Appropriate Patient Orientation: Person, Place, Time and Situation Level of Consciousness: Awake, Appropriate and Alert Patient Behavior: Appropriate and Talkative Mood Description: Calm Affect Description: Calm Ability to Follow Directions: Excellent Speech Pattern: Clear Hallucinations: None Thought Process: Intact Thought Content: positive for Intact Judgement: Good Diagnostics Vital Signs (24Hr): Vital Signs - 24 hr 08/07/24 12:00 08/07/24 16:00 08/07/24 19:52 Temperature 98.9 F 100.4 F 99.3 F Pulse Rate 100 94 103 H Respiratory Rate 20 20 20 Blood Pressure 136/78 134/71 129/63 Pulse Oximetry 96 97 94 Oxygen Delivery Method Room Air Room Air Room Air 08/07/24 23:16 08/08/24 03:55 08/08/24 07:35 Temperature 99.7 F 98.7 F 97.6 F Pulse Rate 98 96 88 Respiratory Rate 18 20 18 Blood Pressure 131/65 117/61 128/71 Pulse Oximetry 93 96 95 Oxygen Delivery Method Room Air Room Air Room Air BMI result Body Mass Index 32.6 Labs 08/08/24 06:44 08/08/24 06:44 Labs: Laboratory Results - last 48 hr 08/07/24 08/07/24 08/08/24 06:50 17:00 06:44 WBC 6.6 5.3 RBC 2.70 L 2.59 L Hgb 9.0 L 8.7 L Hct 27.1 L 26.0 L MCV 100.4 H 100.4 H MCH 33.3 H 33.6 H MCHC 33.2 33.5 RDW 13.1 13.5 Plt Count 141 L 151 L MPV 10.2 10.2 Absolute Nucleated RBC 0.030 H 0.060 H Nucleated RBC % (auto) 0.5 H 1.1 H PT 13.0 H D 12.0 INR 1.1 1.0 Sodium 139 139 Potassium 4.2 3.9 Chloride 106 105 Carbon Dioxide 28 28 Anion Gap 9 L 10 L BUN 11 11 Creatinine 0.74 0.73 Estim Creat Clear Calc 121.9 123.6 Estimated GFR > 60 > 60 Random Glucose 118 H 116 H Calcium 8.5 8.7 Magnesium 1.8 Influenza Type A (PCR) POSITIVE A Influenza Type B (PCR) NEGATIVE RSV RNA Qual (PCR) NEGATIVE SARS-CoV-2 RNA (RT-PCR) NEGATIVE Medications Medications Current Medications Acetaminophen (Acetaminophen 325 Mg Tablet) 650 mg PO Q6H PRN PRN Reason: Pain, Mild 1-3,fever,headache Calcium Carbonate (Calcium Carbonate 750 Mg Tab.Chew) 750 mg PO Q4H PRN PRN Reason: Heartburn Ferrous Sulfate (Ferrous Sulfate 324 Mg Tablet.Dr) 324 mg PO DAILY [facility] Last Admin: 08/08/24 09:02 Dose: 324 mg Folic Acid (Folic Acid 1 Mg Tablet) 1 mg PO DAILY [facility] Stop: 08/08/24 13:29 Last Admin: 08/08/24 09:02 Dose: 1 mg Lamotrigine (Lamotrigine 100 Mg Tablet) 200 mg PO DAILY [facility] Last Admin: 08/08/24 09:02 Dose: 200 mg Loratadine (Loratadine 10 Mg Tablet) 10 mg PO DAILY [facility] Last Admin: 08/08/24 09:01 Dose: 10 mg Magnesium Hydroxide (Milk Of Magnesia 30 Ml Oral.Susp) 30 ml PO DAILY PRN PRN Reason: Constipation Melatonin (Melatonin 3 Mg Tablet) 6 mg PO BEDTIME PRN PRN Reason: Insomnia Last Admin: 08/07/24 21:52 Dose: 6 mg Multivitamins/Vitamin C (Multivitamin Tablet) 1 tab PO DAILY [facility] Stop: 08/08/24 13:29 Last Admin: 08/08/24 09:02 Dose: 1 tab Ondansetron HCl (Ondansetron Hcl 4 Mg/2 Ml Vial) 4 mg IVPUSH Q8H PRN PRN Reason: Nausea and Vomiting Oseltamivir Phosphate (Oseltamivir Phosphate 75 Mg Capsule) 75 mg PO Q12H [facility] Stop: 08/12/24 08:01 Last Admin: 08/08/24 09:01 Dose: 75 mg Pantoprazole Sodium (Pantoprazole Sodium 40 Mg/10 Ml Vial) 40 mg IVPUSH BID@0630,1630 [facility] Last Admin: 08/08/24 06:33 Dose: 40 mg Pharmacy Consult (Consult Rx Etoh Phenob Im/Po) 1 each MISCELLANE ONCE PRN; Protocol PRN Reason: Consult order Phenobarbital (Phenobarbital 15 Mg Tablet) 15 mg PO BID [facility] Stop: 08/09/24 21:01 Last Admin: 08/08/24 09:01 Dose: 15 mg Phenobarbital (Phenobarbital 15 Mg Tablet) 15 mg PO DAILY [facility] Stop: 08/11/24 09:01 Sodium Chloride (0.9 % Sodium Chloride Flush 3 Ml Syringe) 3 ml IVFLUSH QSHIFT [facility] Last Admin: 08/08/24 09:02 Dose: 3 ml Thiamine HCl (Thiamine Hcl 100 Mg Tablet) 100 mg PO DAILY [facility] Stop: 08/08/24 13:29 Last Admin: 08/08/24 09:02 Dose: 100 mg Allergies Allergies Allergy/AdvReac Type Severity Reaction Status Date / Time No Known Allergies Allergy Verified 08/05/24 10:27 Assessment & Plan Assessment & Plan (1) Alcohol use disorder, severe, dependence: Status: Acute Code(s): F10.20 - Alcohol dependence, uncomplicated Assessment and Plan: * patient familiar with naltrexone, and willing to trial again. 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
--- NOTE | 2024-08-08 11:09 | P.PNIM_ITS ---
Subjective Subjective Date of Service: 08/08/24 Interval History: low grade fever, flu positive Physical Exam 2 Vital Signs: Vital Signs: Last Vital Signs Temp 97.6 F 08/08/24 07:35 Pulse 88 08/08/24 07:35 Resp 18 08/08/24 07:35 BP 128/71 08/08/24 07:35 Pulse Ox 95 08/08/24 07:35 O2 Del Method Room Air 08/08/24 07:35 BMI result Body Mass Index 32.6 General: AO X 3, no acute distress Resp: CTA bilateral, no accessory muscles used CVS: S1,S2,RRR GI: soft, non tender, non distended Neuro: motor grossly intact, alert, tremulous Psych: appropriate affect, appropriate insight Objective Data Active Medications Acetaminophen (Acetaminophen 325 Mg Tablet) 650 mg PO Q6H PRN PRN Reason: Pain, Mild 1-3,fever,headache Calcium Carbonate (Calcium Carbonate 750 Mg Tab.Chew) 750 mg PO Q4H PRN PRN Reason: Heartburn Ferrous Sulfate (Ferrous Sulfate 324 Mg Tablet.) 324 mg PO DAILY [facility] Last Admin: 08/08/24 09:02 Dose: 324 mg Documented By: YESSICA Folic Acid (Folic Acid 1 Mg Tablet) 1 mg PO DAILY [facility] Stop: 08/08/24 13:29 Last Admin: 08/08/24 09:02 Dose: 1 mg Documented By: YESSICA Lamotrigine (Lamotrigine 100 Mg Tablet) 200 mg PO DAILY [facility] Last Admin: 08/08/24 09:02 Dose: 200 mg Documented By: YESSICA Loratadine (Loratadine 10 Mg Tablet) 10 mg PO DAILY [facility] Last Admin: 08/08/24 09:01 Dose: 10 mg Documented By: YESSICA Magnesium Hydroxide (Milk Of Magnesia 30 Ml Oral.Susp) 30 ml PO DAILY PRN PRN Reason: Constipation Melatonin (Melatonin 3 Mg Tablet) 6 mg PO BEDTIME PRN PRN Reason: Insomnia Last Admin: 08/07/24 21:52 Dose: 6 mg Documented By: LUIS ALFREDO Multivitamins/Vitamin C (Multivitamin Tablet) 1 tab PO DAILY [facility] Stop: 08/08/24 13:29 Last Admin: 08/08/24 09:02 Dose: 1 tab Documented By: YESSICA Ondansetron HCl (Ondansetron Hcl 4 Mg/2 Ml Vial) 4 mg IVPUSH Q8H PRN PRN Reason: Nausea and Vomiting Oseltamivir Phosphate (Oseltamivir Phosphate 75 Mg Capsule) 75 mg PO Q12H [facility] Stop: 08/12/24 08:01 Last Admin: 08/08/24 09:01 Dose: 75 mg Documented By: YESSICA Pantoprazole Sodium (Pantoprazole Sodium 40 Mg/10 Ml Vial) 40 mg IVPUSH BID@0630,1630 [facility] Last Admin: 08/08/24 06:33 Dose: 40 mg Documented By: KAMERON Pharmacy Consult (Consult Rx Etoh Phenob Im/Po) 1 each MISCELLANE ONCE PRN; Protocol PRN Reason: Consult order Phenobarbital (Phenobarbital 15 Mg Tablet) 15 mg PO BID [facility] Stop: 08/09/24 21:01 Last Admin: 08/08/24 09:01 Dose: 15 mg Documented By: YESSICA Phenobarbital (Phenobarbital 15 Mg Tablet) 15 mg PO DAILY [facility] Stop: 08/11/24 09:01 Sodium Chloride (0.9 % Sodium Chloride Flush 3 Ml Syringe) 3 ml IVFLUSH QSHIFT [facility] Last Admin: 08/08/24 09:02 Dose: 3 ml Documented By: YESSICA Thiamine HCl (Thiamine Hcl 100 Mg Tablet) 100 mg PO DAILY [facility] Stop: 08/08/24 13:29 Last Admin: 08/08/24 09:02 Dose: 100 mg Documented By: YESSICA Labs 08/08/24 06:44 08/08/24 06:44 Labs: Laboratory Results - last 24 hr 08/07/24 08/08/24 17:00 06:44 MCV 100.4 H MCH 33.6 H MCHC 33.5 RDW 13.5 Plt Count 151 L MPV 10.2 Absolute Nucleated RBC 0.060 H Nucleated RBC % (auto) 1.1 H PT 12.0 INR 1.0 Anion Gap 10 L Estim Creat Clear Calc 123.6 Estimated GFR > 60 Random Glucose 116 H Calcium 8.7 Magnesium 1.8 Influenza Type A (PCR) POSITIVE A Influenza Type B (PCR) NEGATIVE RSV RNA Qual (PCR) NEGATIVE SARS-CoV-2 RNA (RT-PCR) NEGATIVE Assessment and Plan (1) Alcohol withdrawal: Status: Acute Plan 54M PMH bicuspid aortic valve status post mechanical aortic valve replacement 2012 on warfarin, history of endocarditis, mood disorder, history of duodenal ulcer and AV malformation, alcohol dependence presented with melena Acute blood loss anemia Due to GI bleed and patient with supratherapeutic INR Warfarin reversed, INR decreased from 7.7 down to 1.4 Continue to hold warfarin for now Continue IV ppi, plan for egd 08/08/24 flu tamiflu started 08/07/24 Alcohol dependence with withdrawal Phenobarbital protocol, CIWA History of mechanical aortic valve restart anticoagulation once bleeding stops/egd Mood disorder On lamotrigine DVT prophylaxis-mechanical due to melena Full code reason for continued hospitalization: Active withdrawal, working up GI bleed Quality Stroke Does the patient have a stroke diagnosis?: No VTE Prior VTE?: No VTE Risk Level:: Medical - moderate - high VTE Device Contraindication: N/A - Device Ordered VTE Drug Contraindication: Treatment Not Indicated
--- NOTE | 2024-08-08 12:16 | P.PNGI_ITS ---
Subjective Subjective Date of Service: 08/08/24 Interval History: HGB has been stable no nausea no vomiting he feels fine Critical Care Time (minutes): 0 Physical Exam 2 Vital Signs: Vital Signs: Last Vital Signs Temp 98.8 F 08/08/24 11:24 Pulse 88 08/08/24 11:24 Resp 18 08/08/24 11:24 BP 129/69 08/08/24 11:24 Pulse Ox 95 08/08/24 07:35 O2 Del Method Room Air 08/08/24 11:24 BMI result Body Mass Index 32.6 EXAM: GENERAL: The patient is well developed and nontoxic. VITAL SIGNS:see workflow HEENT: Nonicteric sclerae, PERRLA, EOMI. Oropharynx clear. Moist mucous membranes. Conjunctivae appear well perfused. No thyroid mass. CHEST: Chest wall is nontender. HEART: Regular rate and rhythm without murmurs. LUNGS: Clear to auscultation bilaterally. ABDOMEN: Soft, positive bowel sounds, nontender, no organomegaly.no flank tenderness SKIN: No rash, no excessive bruising, petechiae, or purpura. NEUROLOGIC: Cranial nerves II-XII intact without motor/sensory deficit. Psych: normal affect Objective Data Labs 08/08/24 06:44 08/08/24 06:44 Labs: Laboratory Results - last 24 hr 08/07/24 08/08/24 17:00 06:44 WBC 5.3 RBC 2.59 L Hgb 8.7 L Hct 26.0 L MCV 100.4 H MCH 33.6 H MCHC 33.5 RDW 13.5 Plt Count 151 L MPV 10.2 Absolute Nucleated RBC 0.060 H Nucleated RBC % (auto) 1.1 H PT 12.0 INR 1.0 Sodium 139 Potassium 3.9 Chloride 105 Carbon Dioxide 28 Anion Gap 10 L BUN 11 Creatinine 0.73 Estim Creat Clear Calc 123.6 Estimated GFR > 60 Random Glucose 116 H Calcium 8.7 Magnesium 1.8 Influenza Type A (PCR) POSITIVE A Influenza Type B (PCR) NEGATIVE RSV RNA Qual (PCR) NEGATIVE SARS-CoV-2 RNA (RT-PCR) NEGATIVE Procedures Date of Service Date of Service: 08/08/24 Progress Note: A&P Assessment and plan (1) Melena: Status: Acute Plan 1/ Melena - possible alcoholic gastritis in setting of high INR, seems to have improved PLAN: 1/ cont with PPI 2/ cont with carafate Time Spent With Patient Time: Total time managing care of this patient today ____ minutes. Quality Stroke Does the patient have a stroke diagnosis?: No VTE Prior VTE?: No VTE Risk Level:: Medical - moderate - high VTE Device Contraindication: N/A - Device Ordered VTE Drug Contraindication: Treatment Not Indicated
[2024-08-08] MEDS: Naltrexone HCl 50 MG TABLET 25 MG PO (12:21)
--- NOTE | 2024-08-08 13:28 | HO.ANESPROP2 ---
[facility] Active Problems Active Problems: All Active Problems Alcohol use disorder, severe, dependence (Acute) Melena (Acute) Alcohol withdrawal (Acute) Upper gastrointestinal hemorrhage (Acute) Past Medical History Medical History AV malformation of gastrointestinal tract Endocarditis Alcohol use disorder Cognitive capacity: acute pozitivity for Influenza A Functional capacity: independent ambulation Family History Family history of problems with anesthesia: No Surgical History Surgical History Aortic valve replaced Social History Social History Household Members: None Alcohol intake: current Alcohol intake frequency: 3 or more drinks per day Alcohol type: beer and hard liquor Patient Tobacco Use Status: Never used Tobacco Advance Directives Date on File: 08/06/24 service: No Meds Allergies Allergy/AdvReac Type Severity Reaction Status Date / Time No Known Allergies Allergy Verified 08/05/24 10:27 Active Medications: Current Medications Acetaminophen (Acetaminophen 325 Mg Tablet) 650 mg PO Q6H PRN PRN Reason: Pain, Mild 1-3,fever,headache Calcium Carbonate (Calcium Carbonate 750 Mg Tab.Chew) 750 mg PO Q4H PRN PRN Reason: Heartburn Ferrous Sulfate (Ferrous Sulfate 324 Mg Tablet.Dr) 324 mg PO DAILY [facility] Last Admin: 08/08/24 09:02 Dose: 324 mg Folic Acid (Folic Acid 1 Mg Tablet) 1 mg PO DAILY [facility] Stop: 08/08/24 13:29 Last Admin: 08/08/24 09:02 Dose: 1 mg Lamotrigine (Lamotrigine 100 Mg Tablet) 200 mg PO DAILY [facility] Last Admin: 08/08/24 09:02 Dose: 200 mg Loratadine (Loratadine 10 Mg Tablet) 10 mg PO DAILY [facility] Last Admin: 08/08/24 09:01 Dose: 10 mg Magnesium Hydroxide (Milk Of Magnesia 30 Ml Oral.Susp) 30 ml PO DAILY PRN PRN Reason: Constipation Melatonin (Melatonin 3 Mg Tablet) 6 mg PO BEDTIME PRN PRN Reason: Insomnia Last Admin: 08/07/24 21:52 Dose: 6 mg Multivitamins/Vitamin C (Multivitamin Tablet) 1 tab PO DAILY [facility] Stop: 08/08/24 13:29 Last Admin: 08/08/24 09:02 Dose: 1 tab Naltrexone HCl (Naltrexone Hcl 50 Mg Tablet) 25 mg PO DAILY [facility] Last Admin: 08/08/24 12:21 Dose: 25 mg Ondansetron HCl (Ondansetron Hcl 4 Mg/2 Ml Vial) 4 mg IVPUSH Q8H PRN PRN Reason: Nausea and Vomiting Oseltamivir Phosphate (Oseltamivir Phosphate 75 Mg Capsule) 75 mg PO Q12H [facility] Stop: 08/12/24 08:01 Last Admin: 08/08/24 09:01 Dose: 75 mg Pantoprazole Sodium (Pantoprazole Sodium 40 Mg/10 Ml Vial) 40 mg IVPUSH BID@0630,1630 [facility] Last Admin: 08/08/24 06:33 Dose: 40 mg Pharmacy Consult (Consult Rx Etoh Phenob Im/Po) 1 each MISCELLANE ONCE PRN; Protocol PRN Reason: Consult order Phenobarbital (Phenobarbital 15 Mg Tablet) 15 mg PO BID [facility] Stop: 08/09/24 21:01 Last Admin: 08/08/24 09:01 Dose: 15 mg Phenobarbital (Phenobarbital 15 Mg Tablet) 15 mg PO DAILY [facility] Stop: 08/11/24 09:01 Sodium Chloride (0.9 % Sodium Chloride Flush 3 Ml Syringe) 3 ml IVFLUSH QSHIFT [facility] Last Admin: 08/08/24 09:02 Dose: 3 ml Thiamine HCl (Thiamine Hcl 100 Mg Tablet) 100 mg PO DAILY [facility] Stop: 08/08/24 13:29 Last Admin: 08/08/24 09:02 Dose: 100 mg Home Medications ?Medication ?Instructions ?Recorded ?Confirmed ?Last Taken ?Type cetirizine 10 mg tablet 10 mg PO DAILY 08/05/24 08/05/24 Unknown History ferrous sulfate 325 mg (65 mg 325 mg PO DAILY 08/05/24 08/05/24 Unknown History iron) tablet (Iron (ferrous sulfate)) hydroxyzine HCl 50 mg tablet 50 mg PO BEDTIME PRN Sleep 08/05/24 08/05/24 Unknown History lamotrigine 200 mg tablet 200 mg PO DAILY 08/05/24 08/05/24 Unknown History multivitamin 1 tab PO DAILY 08/05/24 08/05/24 Unknown History pantoprazole 40 mg tablet,delayed 40 mg PO DAILY 08/05/24 08/05/24 Unknown History release vitamin B complex 1 cap PO DAILY 08/05/24 08/05/24 Unknown History warfarin 5 mg tablet 5 mg PO DAILY 08/05/24 08/05/24 08/03/24 History Exam Height,Weight and Vital Signs: Height 5 ft 7 in Weight 94.3 kg Last Vital Signs Temp 98.8 F 08/08/24 11:24 Pulse 88 08/08/24 11:24 Resp 18 08/08/24 11:24 BP 129/69 08/08/24 11:24 Pulse Ox 95 08/08/24 07:35 O2 Del Method Room Air 08/08/24 11:24 Pertinent Lab Results Pertinent Lab Results: Laboratory Tests 08/05/24 08/05/24 08/06/24 10:50 12:42 04:58 WBC 8.0 RBC 3.22 L Hgb 10.8 L Hct 31.2 L MCV 96.9 MCH 33.5 H MCHC 34.6 RDW 13.2 Plt Count 200 MPV 10.1 Immature Gran % (Auto) 0.5 H Neut % (Auto) 74.3 H Lymph % (Auto) 15.5 L [place] % (Auto) 8.1 Eos % (Auto) 1.0 Baso % (Auto) 0.6 Lymph # (Auto) 1.2 [place] # (Auto) 0.6 Eos # (Auto) 0.1 Baso # (Auto) 0.1 Abs Immat Gran (auto) 0.04 H Absolute Neuts (auto) 5.9 Absolute Nucleated RBC 0.000 Nucleated RBC % (auto) 0.0 PT 89.7 H 16.4 H D INR 7.7 H* 1.4 H D Hold Blue Top SEE NOTE Sodium 140 140 Potassium 4.6 3.8 Chloride 103 106 Carbon Dioxide 26 26 Anion Gap 16 12 BUN 25 H 20 H Creatinine 0.79 0.74 Estim Creat Clear Calc 114.2 121.9 Estimated GFR > 60 > 60 Random Glucose 170 H 125 H Calcium 8.7 8.5 Magnesium 1.8 Total Bilirubin 0.4 AST 35 ALT 53 H Alkaline Phosphatase 51 Total Protein 7.2 Albumin 4.1 Hold Red Top See Note Ethyl Alcohol < 10 Influenza Type A (PCR) NEGATIVE Influenza Type B (PCR) NEGATIVE RSV RNA Qual (PCR) NEGATIVE SARS-CoV-2 RNA (RT-PCR) NEGATIVE Blood Type O Negative Antibody Screen NEGATIVE 0308/07/24 08/07/24 10:12 06:50 17:00 WBC 5.8 6.6 RBC 2.63 L 2.70 L Hgb 8.8 L 9.0 L Hct 26.4 L 27.1 L MCV 100.4 H 100.4 H MCH 33.5 H 33.3 H MCHC 33.3 33.2 RDW 13.1 13.1 Plt Count 141 L D 141 L MPV 10.2 10.2 Immature Gran % (Auto) Neut % (Auto) Lymph % (Auto) [place] % (Auto) Eos % (Auto) Baso % (Auto) Lymph # (Auto) [place] # (Auto) Eos # (Auto) Baso # (Auto) Abs Immat Gran (auto) Absolute Neuts (auto) Absolute Nucleated RBC 0.020 H 0.030 H Nucleated RBC % (auto) 0.3 H 0.5 H PT 13.0 H D INR 1.1 Hold Blue Top Sodium 139 Potassium 4.2 Chloride 106 Carbon Dioxide 28 Anion Gap 9 L BUN 11 Creatinine 0.74 Estim Creat Clear Calc 121.9 Estimated GFR > 60 Random Glucose 118 H Calcium 8.5 Magnesium Total Bilirubin AST ALT Alkaline Phosphatase Total Protein Albumin Hold Red Top Ethyl Alcohol Influenza Type A (PCR) POSITIVE A Influenza Type B (PCR) NEGATIVE RSV RNA Qual (PCR) NEGATIVE SARS-CoV-2 RNA (RT-PCR) NEGATIVE Blood Type Antibody Screen 08/08/24 06:44 WBC 5.3 RBC 2.59 L Hgb 8.7 L Hct 26.0 L MCV 100.4 H MCH 33.6 H MCHC 33.5 RDW 13.5 Plt Count 151 L MPV 10.2 Immature Gran % (Auto) Neut % (Auto) Lymph % (Auto) [place] % (Auto) Eos % (Auto) Baso % (Auto) Lymph # (Auto) [place] # (Auto) Eos # (Auto) Baso # (Auto) Abs Immat Gran (auto) Absolute Neuts (auto) Absolute Nucleated RBC 0.060 H Nucleated RBC % (auto) 1.1 H PT 12.0 INR 1.0 Hold Blue Top Sodium 139 Potassium 3.9 Chloride 105 Carbon Dioxide 28 Anion Gap 10 L BUN 11 Creatinine 0.73 Estim Creat Clear Calc 123.6 Estimated GFR > 60 Random Glucose 116 H Calcium 8.7 Magnesium 1.8 Total Bilirubin AST ALT Alkaline Phosphatase Total Protein Albumin Hold Red Top Ethyl Alcohol Influenza Type A (PCR) Influenza Type B (PCR) RSV RNA Qual (PCR) SARS-CoV-2 RNA (RT-PCR) Blood Type Antibody Screen Assessment and Plan Final Anesthetic Review Family History of Problems with Anesthesia: No
--- NOTE | 2024-08-08 13:46 | MHC.SHP ---
Pre-Procedural Eval Section A - 24 Hr Update-Section A only Date of Service: 08/08/24 The patient is an INPATIENT: Yes The patient has been examined within 24 hours of the surgical procedure. The History & Physical has been completed within 30 days and I have reviewed it.: Yes Section B - Complete if H&P > 30 days Chief Complaint: melena concern for GI bleed Allergies: Allergies Allergy/AdvReac Type Severity Reaction Status Date / Time No Known Allergies Allergy Verified 08/05/24 10:27 Plan Diagnosis/Plan: Unchanged I have reviewed the history and physical and performed a pertinent physical examination on my patient. No changes have occurred unless specified. Time Spent With Patient Time: Total time managing care of this patient today ____ minutes.
--- NOTE | 2024-08-08 14:30 | W.PM.OPN ---
Operative Note Operative Note Date of Service: 08/08/24 Narrative: Procedure Description: EGD Indication: melena Anesthesia: MAC FLEXIBLE TRANSORAL UPPER GASTROINTESTINAL ENDOSCOPY UPPER ENDOSCOPY Consent: Indications for the procedure and potential complications of bleeding, perforation, reaction to medications and missed diagnosis were discussed with the patient and informed consent was obtained. Instrument: Olympus GIF H 190 J mid size upper endoscope Monitoring: Vital signs and clinical assessment, continuous EKG monitoring, Pulse oximetry, Carbon Dioxide monitoring and blood pressure monitoring were done throughout the procedure. Procedure: The patient was placed in the left lateral decubitis position and pre-procedure medications were administered and a bite block was placed. The endoscope was inserted into the mouth and advanced under direct vision to the third part of duodenum. A careful inspection was made as the upper endoscope was withdrawn including a retroflexed examination of the proximal stomach; Findings and interventions are described below. Findings: Larynx:normal Esophagus: GE junction at 43 cm, diaphragm hiatus at 43 cm, mild esophagitis Stomach: normal . Biopsies were obtained. Grade 2 flap valve on retroflexed examination of the cardia. Duodenum: moderate bulbar duodenitis, no active bleeding Intervention: none Impression/Findings: duodenitis esophagitis PLAN: cont with PPI and carafate --can restart coumadin or heparin now GERD precautions o/p colonoscopy - routine
[2024-08-08] MEDS: Warfarin Sodium 5 MG TABLET PO (18:01)
[2024-08-09] VITALS: BP 140/68; PULSE 67; RESP 20; TEMP 37.4; O2SAT 98
[2024-08-09] MEDS: Melatonin 3 MG TABLET 6 MG PO (00:49)
[2024-08-09 03:09] VITALS: BP 135/78; PULSE 81; RESP 20; TEMP 37.4; O2SAT 93
[2024-08-09 06:55] LABS: Hemoglobin 8.9 g/dl (14.0-18.0); Mean Corpuscular Hemoglobin 33.6 pg (27.0-33.0); Mean Corpuscular Volume 101.9 fL (80.0-98.0); Mean Platelet Volume 10.1 fL (9.4-12.4); NRBC Pct Auto 0.8 /100WBC (0.0-0.2); Platelet Count 179 X10*3/uL (160-400); Red Blood Count 2.65 X10*6/uL (4.60-5.80); Red Cell Distribution Width 13.7 % (11.0-16.0); White Blood Count 5.1 X10*3/uL (4.8-10.8)
[2024-08-09 07:15] LABS: Anion Gap 9 (12-20); Blood Urea Nitrogen 10 mg/dL (9-16); Carbon Dioxide 30 mmol/L (22-29); Chloride 105 mmol/L (96-108); Creatinine Clr Calc Pharmacy 125.3; Estimated Glomerular Filt Rate > 60; Glucose Random 115 mg/dL (60-115); Potassium 4.2 mmol/L (3.3-5.1); Sodium 140 mmol/L (135-145)
[2024-08-09 07:17] LABS: Prothrombin Time 11.6 SEC (10.9-12.4)
[2024-08-09 07:18] VITALS: BP 118/59; PULSE 74; RESP 18; TEMP 36.7; O2SAT 94
[2024-08-09] MEDS: Loratadine 10 MG TABLET PO (07:58)
[2024-08-09] MEDS: Ferrous Sulfate 324 MG TABLET.DR PO (07:58)
[2024-08-09] MEDS: PHENobarbitaL 15 MG TABLET PO (07:58)
[2024-08-09] MEDS: Naltrexone HCl 50 MG TABLET 25 MG PO (07:58)
[2024-08-09] MEDS: Oseltamivir Phosphate 75 MG CAPSULE PO (07:59)
[2024-08-09] MEDS: 0.9 % Sodium Chloride Flush 3 ML SYRINGE IVFLUSH (07:59)
[2024-08-09] MEDS: lamoTRIgine 100 MG TABLET 200 MG PO (08:03)
--- NOTE | 2024-08-09 10:36 | HO.POSTANES ---
Post Anesthesia Evaluation Post Anesthesia Evaluation Date of Service: 08/09/24 Vital Signs: Vital Signs Temp Pulse Resp BP Pulse Ox O2 Del Method 08/09/24 07:18 98.1 F 74 18 118/59 L 94 Room Air 08/09/24 03:09 99.4 F 81 20 135/78 93 Room Air 08/09/24 00:00 99.4 F 67 20 140/68 H 98 Room Air Anesthesia: Monitored Mental Status: Awake Pain Control: Satisfactory Nausea/Vomiting: None Hydration: Adequate Anesthesia-Related Issues: No Anes. Related Issues
[2024-08-09 11:20] VITALS: BP 118/72; PULSE 95; RESP 18; TEMP 36.1; O2SAT 97
--- NOTE | 2024-08-09 11:51 | PM.DS ---
DS: Providers Provider Date of Service: 08/09/24 Date of admission: 08/05/24 12:48 Date of discharge: 08/09/24 Primary care physician: RADHA De Luna Consults: 08/05/24 12:47 Consult to Gastroenterology Routine Consulting Provider: Lenora Lombardo Reason for consultation: Melena ?UGIB. INR 7.7 08/05/24 18:40 Addiction Medicine Routine Consulting Provider: Addiction Covering Reason for consultation: Alcohol use disorder DS: Diagnosis Discharge Diagnosis (1) Melena: Status: Acute (2) Alcohol use disorder, severe, dependence: Status: Acute (3) Alcohol withdrawal: Status: Acute (4) Upper gastrointestinal hemorrhage: Status: Acute DS: Summary Hospital Course Hospital Course: Admission note HPI Pt is a 54-year-old male with a PMH significant for mechanical aortic valve replacement? in 2013 on warfarin, endocarditis, hx of GI bleed x3, prior cauterization duodenal ulcer, AV malformation, and alcohol use disorder [place] [facility] [place] presents to the ED with black and tarry stools x3 days. Pt reports weakness and chills, but no lightheadedness or dizziness. Denies hemoptysis, hematemesis, hematochezia. No abd pain or vomiting. Pt on Coumadin which he reports has been compliant with and follows with [facility] [place]. Held Coumadin yesterday. Long hx of daily alcohol use of 1-2 bottles of wine, reports has been drinking 2.5+ bottles daily due to being on vacation. Reports mild tremors, diaphoresis, increased anxiety, nausea, photophobia and phonophobia. No vomiting or headache. No tactile disturbances. Aortic valve replacement secondary to hx of bicuspid aortic valve complicated by endocarditis from bacteremia of unknown source. In the ED pt was tachycardic up to 111 and hypertensive up to 167/92. Labs were significant for H&H 10.8/31.2, Pt 89.7, INR 7.7, and ALT 53. No leukocytosis. No significant electrolyte abnormalities. Renal function baseline. Tested negative for flu, RSV, and COVID. Pt was treated with Pantoprazole 80 mg IV and phytonadione. Pt will be admitted to the hospital for treatment and further evaluation of melena concerning for GI bleed as well as acute alcohol withdrawal. Hospital course The patient was admitted for evaluation of reported GI bleeding and evidence of anemia of unclear duration but considered as acute secondary to blood loss. Found to have elevated INR of 7.7 on Warfarin. reveresed with vitamin K as INR decreased from 7.7 down to 1. no recurrence of bleeding while inpatient. Had EGD by GI which did not show any ulceration or source of bleeding. 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 treated with PPI. recommended to continue Pantoprazole upon discharge. Warfarin restarted with bridging on Lovenox. to discharge on Iron, Folic acid and repeat CBC next week. He was also found to have Influenza. tamiflu started 08/07/24. to finish 3 more days upon discharge. For hx of Alcohol dependence with withdrawal he was treated with Phenobarbital protocol, CIWA. advised total abstinence of alcohol. Prescribed Naltrexone. Plan to follow outpatient with recovery team. provided support. Discharge plan we advise you complete abstinence from Alcohol Take Naltrexone daily. follow as outpatient with recovery team resources Take Lovenox two times a day along with Warfarin until INR > 2 then Lovenox can be stopped repeat CBC in 1 week to check blood level come back to ED for any bleeding take PAntoprazole daily Folic acid, Iron supplement for Anemia treatment Time Attestation Discharge Coordination Time (in mins): 43 Quality: Safe Use of Opioids Does Pt have an Active Cancer Diagnosis on the Problem List?: No Quality: Stroke Does the patient have a stroke diagnosis?: No Physical Exam Vital Signs: Vital Signs: Last Vital Signs Temp 97.0 F 08/09/24 11:20 Pulse 95 08/09/24 11:20 Resp 18 08/09/24 11:20 BP 118/72 08/09/24 11:20 Pulse Ox 97 08/09/24 11:20 O2 Del Method Room Air 08/09/24 11:20 BMI result Body Mass Index 32.6 Const: Other: Constitutional : Awake, interactive, not in distress Neck : Normal inspection, Supple Cardiovascular : RRR, no JVP, no lower extremity edema Respiratory : good bilateral air entry, no crackles, wheezes or rhonchi Gastrointestinal: soft, lax, Normal bowel sounds, Non tender Skin : Warm, Dry Neurological : Alert & oriented x3, No focal deficit , CN 2-12 within normal DS: Data Data Completed and Pending Labs on day of discharge: Laboratory Results - last 24 hr 08/08/24 08/09/24 06:44 06:32 WBC 5.1 RBC 2.65 L Hgb 8.9 L Hct 27.0 L MCV 101.9 H MCH 33.6 H MCHC 33.0 RDW 13.7 Plt Count 179 MPV 10.1 Absolute Nucleated RBC 0.040 H Nucleated RBC % (auto) 0.8 H Smear Path Review SEE NOTE PT 11.6 INR 1.0 Sodium 140 Potassium 4.2 Chloride 105 Carbon Dioxide 30 H Anion Gap 9 L BUN 10 Creatinine 0.72 Estim Creat Clear Calc 125.3 Estimated GFR > 60 Random Glucose 115 Calcium 9.0 Discharge Plan Discharge Anticipated Discharge Date/Time: 08/09/24 11:44 Patient Disposition: Home, Self-Care Discharge Diagnosis: Bloody stool Alcohol abuse and withdrawal Referrals: Ronny Zamora PA [Primary Care Provider] - 1 Week Discharge Medications: New naltrexone 50 mg Tablet 25 mg PO DAILY Qty: 90 0RF oseltamivir [Tamiflu] 75 mg Capsule 75 mg PO Q12H Qty: 6 0RF enoxaparin 100 mg/mL Syringe 90 mg subcut Q12H 5 Days Qty: 9 0RF folic acid 1 mg tablet 1 mg PO DAILY Qty: 90 0RF ferrous sulfate 324 mg (65 mg iron) tablet,delayed release (DR/EC) 324 mg PO DAILY Qty: 90 0RF melatonin 3 mg Tablet 6 mg PO BEDTIME PRN (Reason: Insomnia) Qty: 90 0RF Continued multivitamin Tablet 1 tab PO DAILY lamotrigine 200 mg tablet 200 mg PO DAILY cetirizine 10 mg Tablet 10 mg PO DAILY hydroxyzine HCl 50 mg tablet 50 mg PO BEDTIME PRN (Reason: Sleep) pantoprazole 40 mg tablet,delayed release (DR/EC) 40 mg PO DAILY ferrous sulfate [Iron (ferrous sulfate)] 325 mg (65 mg iron) Tablet 325 mg PO DAILY warfarin 5 mg tablet 5 mg PO DAILY vitamin B complex Capsule 1 cap PO DAILY Discharge Orders: Discharge Order (Routine); Ordered 08/09/24 Ordered By: Kassie Durant Diet: Advance to usual diet Activity on Discharge: As tolerated Stand Alone Forms: Patient Portal Discharge page Print Language: Ecuadorean Other Ambulatory Orders: Complete Blood Count Auto Diff (Routine) Timeframe: 1 Week Facility: [facility] - Location: Laboratory Ordered By: Khaled Abuhashmeh Care Plan Goals: we advise you complete abstinence from Alcohol Take Naltrexone daily. follow as outpatient with recovery team resources Take Lovenox two times a day along with Warfarin until INR > 2 then Lovenox can be stopped repeat CBC in 1 week to check blood level come back to ED for any bleeding take PAntoprazole daily Folic acid, Iron supplement for Anemia treatment Health Concerns: Alcoholism GI bleeding Plan of Treatment: Pantoprazole Alcohol avoidance: Naltrexone Assessment: as above
[2024-08-09] MEDS: Enoxaparin Sodium 100 MG/ML SYRINGE 90 MG SUBCUT (12:11)
--- NOTE | 2024-08-09 14:16 | MHC.CM.PN ---
Pt has been medically cleared for DC, he will go home via private transport, plan is self care.
== END 2024-08-09 12:47 | disposition home or self-care (01) | DRG 241 ==
LOC: HO.ED 11:33 → HO.EDOVER 13:13 → HO.IMC 08-06 19:36
PROVIDERS: Internal Medicine; Internal Medicine Gastroenterology; Admitting Provider Student in an Organized Health Care Education/Training Program; Emergency Provider Emergency Medicine; PCP Physician Assistant Medical; Visit Provider Student in an Organized Health Care Education/Training Program
PROC: 0DJ08ZZ Inspection of Upper Intestinal Tract, Via Natural or Artificial Opening Endoscopic (ICD-10-PCS; CPT 43235; principal; 2024-08-08 12:40)
DX: K29.21 Alcoholic gastritis with bleeding (principal); K20.91 Esophagitis, unspecified with bleeding; D62 Acute posthemorrhagic anemia; F39 Unspecified mood [affective] disorder; R79.1 Abnormal coagulation profile; K29.81 Duodenitis with bleeding; Z95.2 Presence of prosthetic heart valve; Z71.41 Alcohol abuse counseling and surveillance of alcoholic; Z20.822 Contact with and (suspected) exposure to COVID-19; Z79.01 Long term (current) use of anticoagulants; Z79.899 Other long term (current) drug therapy
CPT/HCPCS: 0241U; 36415; 71045; 80048; 80053; 80307; 83735; 85025; 85027; 85610; 86850; 86900; 86901; 99285; J1650; J2003; J2250; J2470; J2560; J2704; J3430; S9485

== ENCOUNTER 2024-08-05 12:48 | Outpatient (BNV) | payer OTHER, SELFPAY | END 2024-08-07 17:00 | PROVIDERS: Admitting Provider Student in an Organized Health Care Education/Training Program; Emergency Provider Emergency Medicine; PCP Physician Assistant Medical; Visit Provider Radiology Diagnostic Radiology | DX: R05.9 Cough, unspecified (principal); R50.9 Fever, unspecified | CPT/HCPCS: 71045 ==

== ENCOUNTER → 2024-08-05 12:48 | Outpatient (BNV) | payer OTHER, SELFPAY | PROVIDERS: Admitting Provider Student in an Organized Health Care Education/Training Program; Emergency Provider Emergency Medicine; PCP Physician Assistant Medical; Visit Provider Nurse Practitioner Psychiatric/Mental Health | DX: F10.20 Alcohol dependence, uncomplicated (principal) | CPT/HCPCS: 99232 ==

== ENCOUNTER → 2024-08-05 12:48 | Outpatient (BNV) | payer OTHER, SELFPAY | PROVIDERS: Admitting Provider Student in an Organized Health Care Education/Training Program; Emergency Provider Emergency Medicine; PCP Physician Assistant Medical; Visit Provider Internal Medicine Gastroenterology | DX: K92.1 Melena (principal) | CPT/HCPCS: 99223; 99232 ==

== ENCOUNTER → 2024-08-05 12:48 | Outpatient (BNV) | payer OTHER, SELFPAY | PROVIDERS: Admitting Provider Student in an Organized Health Care Education/Training Program; Emergency Provider Emergency Medicine; PCP Physician Assistant Medical; Visit Provider Student in an Organized Health Care Education/Training Program | DX: K92.1 Melena (principal); F10.930 Alcohol use, unspecified with withdrawal, uncomplicated; K92.2 Gastrointestinal hemorrhage, unspecified | CPT/HCPCS: 99223; 99232; 99239 ==